=== PATIENT | male | born 1965 | race Caucasian/White ===

== ENCOUNTER 2023-12-31 13:08 | Outpatient (RCR) | payer OTHER, MEDICAID, SELFPAY ==
--- NOTE | 2023-12-31 14:33 | ST.OPIE ---
Visit Care Team Role Provider Type Tor Jeffries DO Attending Provider Physician Family Provider Primary Care Provider Referring Provider Specialty: Family Practice Address: [address] [place] [address], [facility] Email: [email or web address] Speech-Language Pathology Initial Evaluation GORE INSERTER Clinical Swallow Evaluation Start: 12/31/23 13:15 Freq: Status: Active Protocol: Document 12/31/23 13:15 CG (Rec: 12/31/23 14:33 CG [id number]) Clinical Swallow Evaluation Session Time Visit Start Time 13:16 Visit Stop Time 13:55 Total Visit Minutes 39 Visit Information Visit Number 1 Referral Referring Provider Tor Jeffries DO Reason for Referral Foods stuck when swallowing Setting Assessment Location Outpatient Care Visit Type Note Type Initial evaluation Next Note Type Next Note Type Discharge Summary Patient Information Identification Type Name History Colin Mcpherson is a 58 year old male presenting to this clinic for an outpatient evaluation of swallowing due to complaints of food feeling stuck when swallowing. He states that this has been a problem for about 20 years, but has been exacerbated recently. His symptoms typically are triggered when he eats breads or meats, or other dry foods. He states that he feels as though the food gets stuck in his chest, in the area of his sternum, and that they stick at the same place every time. This causes pain, which he states is localized to the are where the food feels stuck. Pt states that this does also happen with pills but very rarely, and is usually caused by bites of meat or bread, specifically with steak. When this happens, he states that I have to either force it down or force it back up. Some strategies he uses to relieve the sensation include standing up, walking around, drinking water, and especially walking down stairs. He is also able to prevent his symptoms sometimes by taking very small bites, chewing very thoroughly, and following with sips of water. Pt's symptoms do not appear to be worse at any particular time of day. He denies any history of reflux or related GI diagnoses. He also denies history of any neurological diagnoses. He does not complain of coughing/choking, and states it's way past the vocal folds when things get stuck. He denies difficulty/ pain with swallowing liquids, but states he can feel his esophagus fill up when he drinks liquids. He c/o dry mouth in the morning, but no hoarseness/cough upon waking. He does not have any difficulty chewing his food and does not c/o dental issues aside from two rotten wisdom teeth on the right side of his mouth (pt primarily chews on left side of mouth to compensate for any pain this causes). Pt states he drinks about 3 cups of coffee per day, then switches to Diet Pepsi, stating I drink a lot of Diet Pepsi. He does not currently drink alcohol, and denies frequently eating spicy foods. He does endorse eating foods with high fat content. Pt has smoked for 40+ years. He states he currently smokes about 1-2 cigarettes per day, but does use chewing tobacco throughout the day on a daily basis. Subjective Observations When asked why he is here for evaluation today, pt stated, Things get lodged in my throat and it's way past the vocal chords. Pt was alert, pleasant, oriented, and a good historian. Reported by Patient/Caregiver Pain/Discomfort Yes Location Chest Other Symptoms Food gets stuck,Pain on swallowing Comment -No unintentional weight loss -Pt typically eats smaller meals throughout the day as opposed to fewer larger meals Current Diet Regular (IDDSI 7) Baseline Feeding Method Independent in self-feeding The IDDSI Framework Protocol: IDDSI.1 Objective Assessment Mental Status Alert,Cooperative Oral Integrity WFL Dentition Within normal limits,Decay Lip Function Within normal limits Pucker Within normal limits Lip Retraction Within normal limits Alternating Pucker/Lip Retraction Within normal limits Tongue Function Within normal limits Observations of Tongue at Rest Within normal limits Tongue Protrusion Within normal limits Tongue Retraction Within normal limits Tongue Lateralization Within normal limits Jaw Function Within normal limits Jaw Opening Within normal limits Jaw Closing Within normal limits Jaw Lateralization Within normal limits Hard/Soft Palate Function Within normal limits Respiratory Sufficiency Within normal limits Comment Oral motor structure and function WFL for speech and swallowing Food and Liquid Trials Position During Assessment Upright (90 degrees) Liquids Trialed Thin (IDDSI 0) Solid Trials Purred (IDDSI 4),Regular ( IDDSI 7) Oral Impairment Within normal limits Oral Phase Comments Pral phase WFL for all consistencies. Pharyngeal Impairment Within normal limits Pharyngeal Phase Comments Pharyngeal phase WFL for all consistencies proferred. However, pt c/o foods feeling stuck, particularly meats. Pt c/o sticking feeling lower down in the esophagus - pharyngeal dysfunction is not suspected. Fatigue/Endurance Endurance WNL Results The pt does not present with any overt s/sx of oral or pharyngeal dysphagia. However , he does complain of symptoms consistent with various possible esophageal etiologies . He also presents with certain behaviors that put him at increased risk for esophageal dysfunction and/or reflux/GERD, such as frequent intake of dark sodas and coffee as well as the use of chewing tobacco. *It is not within GORE INSERTER scope to diagnose or treat esophageal disorders alone; however, this GORE INSERTER highly recommends pursuing a GI evaluation and/ or imaging of the esophagus such as an upper endoscopy, per PCP's discretion.* The IDDSI Framework Protocol: IDDSI.1 Findings Swallowing Function Other dysphagia Swallowing Function Comments Suspect esophageal etiology. Consider GI evaluation/ esophageal imaging Severity of Swallow Impairment Mildly impaired Prognosis Good Based on Cognitive status,Age Impact on Safety and Functioning No limitations Recommendations Instrumental Assessment No Swallowing Treatment No Recommended Solids Easy to Chew (IDDSI 7) Recommended Liquids Thin (IDDSI 0) Other Recommendations GORE INSERTER recommendations: 1. GI referral 2. Discuss pursuing imaging of esophagus 3. Alter diet to include softer foods, increased moisture 4. Follow standard esophageal/ reflux precautions Referrals Recommended Referrals Gastroenterology Education Patient/Caregiver Education Described results of evaluation,Patient expressed understanding of evaluation
--- NOTE | 2024-08-26 12:26 | ST.OPDC.SWTH ---
Visit Care Team Role Provider Type Tor Jeffries DO Attending Provider Physician Family Provider Primary Care Provider Referring Provider Specialty: Family Practice Address: [address] [place] [address], [facility] Email: WORKFORCE ANALYST Discharge Note WORKFORCE ANALYST Discharge Note Start: 08/26/24 12:24 Freq: Status: Active Protocol: Document 08/26/24 12:24 CG (Rec: 08/26/24 12:25 CG [id number]) Dysphagia Treatment Session Time Visit Start Time 13:16 Visit Stop Time 13:55 Total Visit Minutes 39 Visit Type Note Type Discharge Summary Treatment Liquids Trialed Thin (IDDSI 0) Solids Trialed Purred (IDDSI 4),Regular ( IDDSI 7) Treatment Activities N/a. Pt not appropriate for ST services as his concerns are GI related. D/C at this time. The IDDSI Framework Protocol: IDDSI.1 Assessment Assessment of Improvement Pt not appropriate for ST services as his concerns are GI related. Eval only - D/C at this time. Recommendations Liquids Order Thin (IDDSI 0) Diet Order Easy to Chew (IDDSI 7) Referrals/Other Recommended Referrals GI Consult
== END 2024-09-02 11:02 | disposition home or self-care (01) ==
LOC: SP 13:08
PROVIDERS: Family Provider Family Medicine; PCP Family Medicine; Referring Provider Family Medicine; Visit Provider Family Medicine
DX: R13.10 Dysphagia, unspecified (principal)
CPT/HCPCS: 92610

== ENCOUNTER → 2024-03-17 16:09 | Outpatient (CLI) | payer OTHER, MEDICAID, SELFPAY ==
--- NOTE | 2024-03-17 16:12 | DI.RAD.S_ITS ---
PROCEDURE: XR LUMBAR SPINE 2-3V INDICATIONS: Persistent lower back pain with radiculopathy down left hip TECHNIQUE: 3 views of the lumbar spine were acquired. COMPARISON: None. FINDINGS: Bones: 5 [id number] vertebrae are present. Straightening of the normal lumbar lordosis. There is multilevel facet arthropathy, worse at L4-5 and L5-S1. Multilevel disc height loss with degenerative endplate changes and spurring is present. No vertebral body compression fractures. No suspicious bony lesions. Soft tissues: Overlying bowel gas pattern is normal. No suspicious soft tissue calcifications. Atherosclerotic vascular calcifications. IMPRESSION: Multilevel degenerative changes of the lumbar spine, most pronounced within the lower lumbar spine. Dictated by: Mode Hester M.D. on 03/19/2024 at 14:11 Approved by: Mode Hester M.D. on 03/19/2024 at 14:12
== END ==
LOC: RAD 16:12
PROVIDERS: Family Provider Family Medicine; PCP Family Medicine; Referring Provider Family Medicine; Visit Provider Family Medicine
DX: M47.816 Spondylosis without myelopathy or radiculopathy, lumbar region (principal); M47.817 Spondylosis without myelopathy or radiculopathy, lumbosacral region; M54.50 Low back pain, unspecified
CPT/HCPCS: 72100